=== PATIENT | female | born 1975 | race Caucasian/White ===

== ENCOUNTER 2021-02-11 09:22 | Inpatient (IN) | payer BC, MEDICAID ==
[~2021-02-11] VITALS: Ht 154.9 cm; Wt 70.1 kg
[2021-02-11] MEDS ORDERED: FUROSEMIDE 40 MG/4 ML VIAL IV ONE ×2 (10:45→15:15)
[2021-02-11 11:37] LABS: Basophils # (auto) 0 10 ^3/uL (0-0.2); Basophils % (auto) 0.7 % (0.0-2.0); Eosinophils # (auto) 0.1 10 ^3/uL (0-0.8); Eosinophils % (auto) 2.1 % (0.0-7.0); Hematocrit 30.6 % (36.0-46.0); Hemoglobin 10.4 g/dL (12.2-16.2); Lymphocytes # (auto) 0.5 10 ^3/uL (0.4-5.4); Lymphocytes % (auto) 7.3 % (10.0-50.0); Mean Corpuscular Hemoglobin 31.5 pg (28.0-32.0); Mean Corpuscular Hgb Conc. 34.2 g/dL (32.0-36.0); Mean Corpuscular Volume 92.2 fL (80.0-100.0); Monocytes # (auto) 0.4 10 ^3/uL (0-1.3); Monocytes % (auto) 6.1 % (0.0-12.0); Neutrophils # (auto) 5.9 10 ^3/uL (1.6-8.6); Neutrophils % (auto) 83.8 % (37.0-80.0); Nucleated Red Blood Cells % 0.1 %; Red Blood Cells 3.31 10^6/uL (4.0-5.20); Red Cell Distribution Width 13.8 % (11.8-14.3); White Blood Cell 7.1 10^3/uL (4.4-10.8)
[2021-02-11] MEDS ORDERED: cefTRIAXone 1GM/50ML D5W 50 ML IV ONE (11:45)
[2021-02-11 11:54] LABS: Calcium 8.6 mg/dL (8.5-10.1); Chloride 104 mmol/L (98-107); Potassium 3.1 mmol/L (3.5-5.1); Sodium 137 mmol/L (136-145)
[2021-02-11 12:02] LABS: Alanine Aminotransferase 40 U/L (13-56); Albumin 3.7 g/dL (3.4-5.0); Alkaline Phosphatase 164 U/L (45-117); Anion Gap 14 (5-15); Aspartate Aminotransferase 22 U/L (15-37); BUN/Creatinine Ratio 8.5; Bilirubin, Total 0.5 mg/dL (0.2-1.0); Blood Urea Nitrogen 66 mg/dL (7-18); Carbon Dioxide 19 mmol/L (21-32); GFR African American 7 mL/min; GFR Non-African American 6 mL/min; Glucose 99 mg/dL (74-106)
[2021-02-11] MEDS ORDERED: LABETALOL HCL 5 MG/ML 4ML SYRINGE IV ONE (14:45)
[2021-02-11] MEDS ORDERED: cloNIDine 0.2 mg/24hr 7DAY PATCH TD ONE (15:15)
[2021-02-11] MEDS: NIFEdipine ER 30 MG TAB PO SCH (15:15)
[2021-02-11] MEDS ORDERED: POTASSIUM CHL 20 Meq TABLET PO ONE (16:45)
[2021-02-11] MEDS ORDERED: NITROGLYCERIN 0.4 MG SL TAB SL PRN ×2 (17:30→20:15)
[2021-02-11] MEDS ORDERED: MORPHINE SULFATE INJECTION 2 MG/ML SYRG IV PRN ×2 (17:30→20:15)
[2021-02-11 17:37] LABS: Urine WBC None Seen /hpf (0 - 5)
[2021-02-11] MEDS ORDERED: FUROSEMIDE 100 MG/10ML VIAL IV ONE (18:00)
[2021-02-11 18:16] LABS: Urine Bacteria FEW /hpf (None Seen); Urine Blood Negative /uL (Negative)
[2021-02-11] MEDS ORDERED: ONDANSETRON HCL 4 MG/2 ML VIAL ONE (19:06)
[2021-02-11] MEDS ORDERED: hydrALAZINE HCL 20 MG/ML VL IV PRN (20:00)
[2021-02-11] MEDS ORDERED: SODIUM CHLORIDE 0.9% 1,000 ML IV SCH (20:00)
[2021-02-11] MEDS ORDERED: LORazepam 0.5 MG TAB PO PRN (20:15)
[2021-02-11] MEDS ORDERED: HYDROcodone-ACET 5/325MG TAB PO PRN (20:15)
[2021-02-11] MEDS ORDERED: ONDANSETRON HCL 4 MG/2 ML VIAL IV PRN (20:15)
[2021-02-11] MEDS ORDERED: DOCUSATE SOD 100 MG CAP PO PRN (20:15)
[2021-02-11] MEDS ORDERED: ACETAMINOPHEN 325 MG TAB PO PRN (20:15)
[2021-02-11] MEDS ORDERED: FAMOTIDINE (10MG/ML) 2ML VL IV ONE (20:15)
[2021-02-11 21:53] LABS: Cholesterol 128 mg/dL (< 200); HDL Cholesterol 42 mg/dL (40-59); LDL Cholesterol 72 mg/dL (< 100); Triglycerides 63 mg/dL (< 150)
[2021-02-11] MEDS ORDERED: hydrALAZINE HCL 25 MG TAB PO ONE (22:00)
[2021-02-12 00:40] LABS: Alcohol, Urine < 3.0 mg/dL (0-10); Amphetamine Screen, Urine POSITIVE (NEGATIVE); Barbiturate Scree,Urine NEGATIVE (NEGATIVE); Benzodiazephine Screen, Urine NEGATIVE (NEGATIVE); Cannabinoid Screen, Urine NEGATIVE (NEGATIVE); Cocaine Screen, Urine NEGATIVE (NEGATIVE); Opiate Scree,Urine NEGATIVE (NEGATIVE); Phencyclidine Screen, Urine NEGATIVE (NEGATIVE)
[2021-02-12 05:39] LABS: Basophils # (auto) 0 10 ^3/uL (0-0.2); Basophils % (auto) 0.8 % (0.0-2.0); Eosinophils # (auto) 0.2 10 ^3/uL (0-0.8); Eosinophils % (auto) 3.2 % (0.0-7.0); Hematocrit 27.9 % (36.0-46.0); Hemoglobin 9.8 g/dL (12.2-16.2); Lymphocytes # (auto) 0.7 10 ^3/uL (0.4-5.4); Mean Corpuscular Hemoglobin 32.2 pg (28.0-32.0); Mean Corpuscular Hgb Conc. 35.1 g/dL (32.0-36.0); Mean Corpuscular Volume 91.7 fL (80.0-100.0); Monocytes # (auto) 0.5 10 ^3/uL (0-1.3); Monocytes % (auto) 8.9 % (0.0-12.0); Neutrophils # (auto) 4.6 10 ^3/uL (1.6-8.6); Neutrophils % (auto) 76.1 % (37.0-80.0); Red Blood Cells 3.04 10^6/uL (4.0-5.20); Red Cell Distribution Width 13.8 % (11.8-14.3)
[2021-02-12] MEDS: FUROSEMIDE 40 MG/4 ML VIAL IV SCH ×2 (05:53→18:00)
[2021-02-12 05:54] LABS: INR 1.05 (0.9-1.15); Partial Thromboplastin Time 25.7 sec (23.6-33.0)
[2021-02-12 06:27] LABS: Chloride 106 mmol/L (98-107); Potassium 3.1 mmol/L (3.5-5.1); Sodium 138 mmol/L (136-145)
[2021-02-12 06:46] LABS: Alanine Aminotransferase 35 U/L (13-56); Albumin 3.3 g/dL (3.4-5.0); Alkaline Phosphatase 159 U/L (45-117); Anion Gap 13 (5-15); Aspartate Aminotransferase 16 U/L (15-37); BUN/Creatinine Ratio 8.5; Bilirubin, Total 0.4 mg/dL (0.2-1.0); Blood Urea Nitrogen 65 mg/dL (7-18); Calcium 8.5 mg/dL (8.5-10.1); Carbon Dioxide 19 mmol/L (21-32); GFR African American 7 mL/min; GFR Non-African American 6 mL/min; Glucose 89 mg/dL (74-106); Magnesium 3.4 mg/dL (1.6-2.6); Phosphorus 6.2 mg/dL (2.5-4.90); Total Protein 6.6 g/dL (6.4-8.2)
[2021-02-12] MEDS ORDERED: POTASSIUM EFFERVESENT TAB 25 MEQ ONE (08:37)
[2021-02-12] MEDS: POTASSIUM CHL 20 Meq TABLET PO SCH (08:43)
[2021-02-12] MEDS: NIFEdipine ER 30 MG TAB PO SCH (08:43)
[2021-02-12] MEDS: ENOXAPARIN SOD 30 MG/0.3 ML SYRINGE SC SCH (08:44)
[2021-02-12] MEDS ORDERED: POTASSIUM EFFERVESENT TAB 25 MEQ PO ONE (08:45)
[2021-02-12] MEDS ORDERED: ERGOCALCIFEROL 50,000 UNIT(1.25MG) CAP PO SCH (10:30)
[2021-02-12 11:19] LABS: Protein, Urine 57.1 mg/dL (0.0-11.9)
[2021-02-12] MEDS: CALCIUM ACETATE 667 MG CAP PO SCH ×2 (12:47→18:00)
[2021-02-12] MEDS ORDERED: cloNIDine HCL 0.1 MG TAB PO PRN ×2 (14:15→15:45)
[2021-02-12] MEDS: MORPHINE SULFATE INJECTION 2 MG/ML SYRG IV PRN (15:24)
[2021-02-12] MEDS ORDERED: CARVEDILOL 3.125 MG TAB PO ONE (15:30)
[2021-02-12 15:33] LABS: % Iron Saturation 10.1 % (15-50)
[2021-02-12 15:41] LABS: Ferritin 33.2 ng/mL (10-322)
[2021-02-12 15:42] LABS: Folate (Folic Acid) 7.94 ng/mL (5.38-24)
[2021-02-12 17:38] VITALS: BP 166/106
[2021-02-12] MEDS ORDERED: GALC120I SC (18:34)
[2021-02-12] MEDS ORDERED: OXYC325T14 PO (18:34)
[2021-02-12] MEDS ORDERED: RIZA10TA50 PO (18:34)
[2021-02-12 22:00] VITALS: BP 136/92
[2021-02-12] MEDS: CARVEDILOL 3.125 MG TAB PO SCH (22:16)
[2021-02-13] VITALS (11 sets, daily range): BP systolic 144–174; BP diastolic 90–123
[2021-02-13] MEDS: FUROSEMIDE 40 MG/4 ML VIAL IV SCH ×2 (05:42→17:38)
[2021-02-13] MEDS ORDERED: SODIUM CHL 0.9% 1000 ML BAG XX ONE (07:00)
[2021-02-13] MEDS: CALCIUM ACETATE 667 MG CAP PO SCH ×3 (08:27→17:38)
[2021-02-13] MEDS ORDERED: SODIUM FERR GLUC 62.5MG/5ML 125 MG in SODIUM CHL 0.9% 100 ML IV ONE (08:45)
[2021-02-13 09:09] LABS: BUN/Creatinine Ratio 9.1; Potassium 3.6 mmol/L (3.5-5.1)
[2021-02-13] MEDS ORDERED: MIDAZOLAM HCL 2MG/2ML 2ml VIAL (1mg/ml) ONE (09:11)
[2021-02-13] MEDS ORDERED: fentaNYL CITRATE 100 MCG/2 ML VL ONE (09:11)
[2021-02-13] MEDS: NIFEdipine ER 30 MG TAB PO SCH (09:12)
[2021-02-13] MEDS: CARVEDILOL 3.125 MG TAB PO SCH ×2 (09:13→22:21)
[2021-02-13] MEDS: POTASSIUM CHL 20 Meq TABLET PO SCH (09:13)
[2021-02-13] MEDS ORDERED: HEPARIN SODIUM (PORCINE) 5000 UNITS/ML 1ML VIAL ONE (09:47)
[2021-02-13] MEDS ORDERED: LIDOCAINE 2%HCL (LOCAL ANESTH.) INJ 20ML MDV ONE (09:49)
[2021-02-13] MEDS: ENOXAPARIN SOD 30 MG/0.3 ML SYRINGE SC SCH (10:00)
[2021-02-13] MEDS ORDERED: CYANOCOBALAMIN (B-12) 1000 MCG/1 ML VIAL SUBCUT ONE (14:45)
[2021-02-13] MEDS: FAMOTIDINE (10MG/ML) 2ML VL IV SCH (22:21)
[2021-02-13] MEDS: MORPHINE SULFATE INJECTION 2 MG/ML SYRG IV PRN (22:38)
[2021-02-14 05:00] VITALS: BP 140/101
[2021-02-14] MEDS: FUROSEMIDE 40 MG/4 ML VIAL IV SCH ×2 (05:45→17:46)
[2021-02-14 06:18] LABS: Potassium 3.6 mmol/L (3.5-5.1)
[2021-02-14 06:23] LABS: BUN/Creatinine Ratio 8.3; Calcium 8.7 mg/dL (8.5-10.1)
[2021-02-14] MEDS: CALCIUM ACETATE 667 MG CAP PO SCH ×3 (07:55→17:46)
[2021-02-14 09:00] VITALS: BP 133/93
[2021-02-14] MEDS: ENOXAPARIN SOD 30 MG/0.3 ML SYRINGE SC SCH (09:30)
[2021-02-14] MEDS: NIFEdipine ER 30 MG TAB PO SCH (09:31)
[2021-02-14] MEDS: LOSARTAN POTASSIUM 50 MG TAB PO SCH (09:31)
[2021-02-14] MEDS: CARVEDILOL 3.125 MG TAB PO SCH ×2 (09:32→21:48)
[2021-02-14] MEDS: SODIUM FERR GLUC 62.5MG/5ML 125 MG in SODIUM CHL 0.9% 100 ML IV SCH (12:18)
[2021-02-14 13:00] VITALS: BP 149/103
[2021-02-14 13:21] LABS: Hepatitis A Total Antibody Negative
[2021-02-14 13:37] LABS: Hepatitis B Surface Antigen Negative (Negative)
[2021-02-14 13:45] LABS: Hepatitis B Surface Antibody Negative
[2021-02-14 14:00] LABS: Hepatitis C Antibody Negative (Negative)
[2021-02-14 14:06] LABS: Hepatitis B Core Total AB Negative
[2021-02-14 16:49] VITALS: BP 133/88
[2021-02-14] MEDS: MORPHINE SULFATE INJECTION 2 MG/ML SYRG IV PRN (21:49)
[2021-02-14 21:54] VITALS: BP 135/88
[2021-02-15 05:05] VITALS: BP 135/94
[2021-02-15] MEDS: FUROSEMIDE 40 MG/4 ML VIAL IV SCH ×2 (06:23→18:50)
[2021-02-15] MEDS: CALCIUM ACETATE 667 MG CAP PO SCH ×3 (08:50→18:50)
[2021-02-15 09:00] VITALS: BP 133/93
[2021-02-15] MEDS: CARVEDILOL 3.125 MG TAB PO SCH ×2 (10:00→22:01)
[2021-02-15] MEDS: ENOXAPARIN SOD 30 MG/0.3 ML SYRINGE SC SCH (10:00)
[2021-02-15] MEDS ORDERED: SODIUM CHL 0.9% 1000 ML BAG XX ONE (11:00)
[2021-02-15] MEDS: SODIUM FERR GLUC 62.5MG/5ML 125 MG in SODIUM CHL 0.9% 100 ML IV SCH (12:18)
[2021-02-15] MEDS: MORPHINE SULFATE INJECTION 2 MG/ML SYRG IV PRN ×2 (12:19→20:23)
[2021-02-15 14:37] LABS: Basophils # (auto) 0 10 ^3/uL (0-0.2); Basophils % (auto) 0.7 % (0.0-2.0); Eosinophils # (auto) 0.2 10 ^3/uL (0-0.8); Eosinophils % (auto) 3.6 % (0.0-7.0); Hematocrit 32.8 % (36.0-46.0); Hemoglobin 10.9 g/dL (12.2-16.2); Lymphocytes # (auto) 0.8 10 ^3/uL (0.4-5.4); Lymphocytes % (auto) 14.6 % (10.0-50.0); Mean Corpuscular Hgb Conc. 33.2 g/dL (32.0-36.0); Mean Corpuscular Volume 93.5 fL (80.0-100.0); Monocytes # (auto) 0.6 10 ^3/uL (0-1.3); Monocytes % (auto) 10.2 % (0.0-12.0); Neutrophils # (auto) 3.8 10 ^3/uL (1.6-8.6); Neutrophils % (auto) 70.9 % (37.0-80.0); Nucleated Red Blood Cells % 0.1 %; Red Blood Cells 3.51 10^6/uL (4.0-5.20); Red Cell Distribution Width 13.6 % (11.8-14.3); White Blood Cell 5.4 10^3/uL (4.4-10.8)
[2021-02-15] MEDS ORDERED: CAR3125T PO (15:09)
[2021-02-15] MEDS ORDERED: NIFE1TAB31 PO (15:09)
[2021-02-15] MEDS ORDERED: LOSA-69 PO (15:09)
[2021-02-15] MEDS ORDERED: ERGO1CAP23 PO (15:09)
[2021-02-15] MEDS ORDERED: CYANOCOBALAMIN (B-12) 1000 MCG/1 ML VIAL SUBCUT ONE (15:15)
[2021-02-15] MEDS: LOSARTAN POTASSIUM 50 MG TAB PO SCH (16:25)
[2021-02-15] MEDS: NIFEdipine ER 30 MG TAB PO SCH (16:26)
[2021-02-15 16:52] VITALS: BP 168/106
[2021-02-15] MEDS: FAMOTIDINE (10MG/ML) 2ML VL IV SCH (22:00)
[2021-02-15 22:11] VITALS: BP 131/78
[2021-02-16 05:14] VITALS: BP 124/79
[2021-02-16] MEDS: FUROSEMIDE 40 MG/4 ML VIAL IV SCH (06:05)
[2021-02-16] MEDS ORDERED: SODIUM CHL 0.9% 1000 ML BAG XX ONE (07:00)
[2021-02-16] MEDS: CALCIUM ACETATE 667 MG CAP PO SCH ×2 (08:00→12:00)
[2021-02-16 09:00] VITALS: BP 127/89
[2021-02-16] MEDS: CARVEDILOL 3.125 MG TAB PO SCH (10:00)
[2021-02-16] MEDS: LOSARTAN POTASSIUM 50 MG TAB PO SCH (10:00)
[2021-02-16] MEDS: NIFEdipine ER 30 MG TAB PO SCH (10:00)
[2021-02-16 10:52] LABS: Basophils # (auto) 0 10 ^3/uL (0-0.2); Basophils % (auto) 0.8 % (0.0-2.0); Eosinophils # (auto) 0.1 10 ^3/uL (0-0.8); Eosinophils % (auto) 3.1 % (0.0-7.0); Hematocrit 28.7 % (36.0-46.0); Hemoglobin 9.5 g/dL (12.2-16.2); Lymphocytes # (auto) 0.5 10 ^3/uL (0.4-5.4); Lymphocytes % (auto) 11.7 % (10.0-50.0); Mean Corpuscular Hemoglobin 30.5 pg (28.0-32.0); Mean Corpuscular Volume 92.4 fL (80.0-100.0); Monocytes # (auto) 0.5 10 ^3/uL (0-1.3); Monocytes % (auto) 10.3 % (0.0-12.0); Neutrophils # (auto) 3.5 10 ^3/uL (1.6-8.6); Neutrophils % (auto) 74.1 % (37.0-80.0); Nucleated Red Blood Cells % 0.1 %; Red Cell Distribution Width 13.6 % (11.8-14.3); White Blood Cell 4.7 10^3/uL (4.4-10.8)
[2021-02-16 13:00] VITALS: BP 116/109
[2021-02-16 16:02] VITALS: BP 155/89
== END 2021-02-16 15:06 | disposition home or self-care (01) | DRG 304 ==
LOC: ER 09:22 → TELE 17:28 → TELE-WESTW 02-12 17:06
PROVIDERS: ADMIT Hospitalist; ATTEND Internal Medicine
PROC: 0JH63XZ Insertion of Tunneled Vascular Access Device into Chest Subcutaneous Tissue and Fascia, Percutaneous Approach (ICD-10-PCS; principal; 2021-02-13)
PROC: 02H633Z Insertion of Infusion Device into Right Atrium, Percutaneous Approach (ICD-10-PCS; 2021-02-13)
PROC: B548ZZA Ultrasonography of Superior Vena Cava, Guidance (ICD-10-PCS; 2021-02-13)
PROC: B5181ZA Fluoroscopy of Superior Vena Cava using Low Osmolar Contrast, Guidance (ICD-10-PCS; 2021-02-13)
PROC: 5A1D70Z Performance of Urinary Filtration, Intermittent, Less than 6 Hours Per Day (ICD-10-PCS; 2021-02-13)
PROC: 5A1D70Z Performance of Urinary Filtration, Intermittent, Less than 6 Hours Per Day (ICD-10-PCS; 2021-02-16)
DX: I16.1 Hypertensive emergency (principal); J18.9 Pneumonia, unspecified organism; N17.0 Acute kidney failure with tubular necrosis; N18.6 End stage renal disease; I13.2 Hypertensive heart and chronic kidney disease with heart failure and with stage 5 chronic kidney disease, or end stage renal disease; E66.01 Morbid (severe) obesity due to excess calories; E87.6 Hypokalemia; F15.10 Other stimulant abuse, uncomplicated; Z20.822 Contact with and (suspected) exposure to COVID-19; R80.9 Proteinuria, unspecified; E87.70 Fluid overload, unspecified; I08.3 Combined rheumatic disorders of mitral, aortic and tricuspid valves; I50.9 Heart failure, unspecified; F17.210 Nicotine dependence, cigarettes, uncomplicated; E55.9 Vitamin D deficiency, unspecified; G43.909 Migraine, unspecified, not intractable, without status migrainosus; D50.9 Iron deficiency anemia, unspecified; G89.4 Chronic pain syndrome; Z82.49 Family history of ischemic heart disease and other diseases of the circulatory system; Z91.19 Patient's noncompliance with other medical treatment and regimen; Z99.2 Dependence on renal dialysis; Z71.6 Tobacco abuse counseling; Z88.0 Allergy status to penicillin; Z71.51 Drug abuse counseling and surveillance of drug abuser; Z68.29 Body mass index [BMI] 29.0-29.9, adult
CPT/HCPCS: 36415; 36561; 70490; 71045; 71046; 76775; 76937; 76942; 77001; 80048; 80053; 80061; 80307; 81001; 82088; 82270; 82306; 82550; 82570; 82607; 82728; 82746; 82784; 83036; 83516; 83520; 83540; 83550; 83605; 83735; 83880; 83883; 83935; 83970; 84100; 84132; 84155; 84156; 84165; 84244; 84300; 84443; 84484; 84550; 84702; 85025; 85379; 85610; 85652; 85730; 86141; 86160; 86225; 86235; 86256; 86334; 86703; 86704; 86706; 86708; 86803; 87040; 87086; 87340; 87426; 90935; 93005; 93306; 93970; 96365; 96375; 99152; 99153; 99291; G0378; J0696; J1642; J2250; J2405; J3490

== ENCOUNTER 2022-02-25 08:18 | Emergency (ER) | payer BC, MEDICAID ==
[~2022-02-25] VITALS: Ht 154.9 cm; Wt 63.6 kg
[~2022-02-25 08:18] MED LIST: CAR3125T PO; ERGO1CAP23 PO; GALC120I SC; LOSA-69 PO; NIFE1TAB31 PO; OXYC325T14 PO; RIZA10TA50 PO
[2022-02-25 09:12] LABS: Basophils # (auto) 0 10 ^3/uL (0-0.2); Basophils % (auto) 0.3 % (0.0-2.0); Eosinophils # (auto) 0.1 10 ^3/uL (0-0.8); Eosinophils % (auto) 1.1 % (0.0-7.0); Hemoglobin 12.6 g/dL (12.2-16.2); Lymphocytes # (auto) 0.5 10 ^3/uL (0.4-5.4); Lymphocytes % (auto) 5.2 % (10.0-50.0); Mean Corpuscular Hemoglobin 31.6 pg (28.0-32.0); Mean Corpuscular Volume 92.9 fL (80.0-100.0); Monocytes # (auto) 0.8 10 ^3/uL (0-1.3); Monocytes % (auto) 8.8 % (0.0-12.0); Neutrophils # (auto) 8.1 10 ^3/uL (1.6-8.6); Neutrophils % (auto) 84.6 % (37.0-80.0); Red Blood Cells 3.98 10^6/uL (4.0-5.20); Red Cell Distribution Width 12.9 % (11.8-14.3); White Blood Cell 9.6 10^3/uL (4.4-10.8)
[2022-02-25 09:29] LABS: Albumin 3.5 g/dL (3.4-5.0); Calcium 7.2 mg/dL (8.5-10.1); Potassium 3.9 mmol/L (3.5-5.1)
[2022-02-25 09:33] LABS: BUN/Creatinine Ratio 8.3; Bilirubin, Total 0.5 mg/dL (0.2-1.0); Total Protein 6.8 g/dL (6.4-8.2)
[2022-02-25] MEDS ORDERED: PIPERACILLIN-TAZOB 3.375GM 100 ML IV ONE (09:45)
[2022-02-25 11:00] VITALS: BP 143/97
== END 2022-02-25 11:37 | disposition left against medical advice (07) ==
LOC: ER 08:18
DX: L03.313 Cellulitis of chest wall (principal); I16.0 Hypertensive urgency; I13.2 Hypertensive heart and chronic kidney disease with heart failure and with stage 5 chronic kidney disease, or end stage renal disease; N18.6 End stage renal disease; I50.84 End stage heart failure; Z99.2 Dependence on renal dialysis; Z53.29 Procedure and treatment not carried out because of patient's decision for other reasons; Z20.822 Contact with and (suspected) exposure to COVID-19; Z88.0 Allergy status to penicillin; Z91.018 Allergy to other foods
CPT/HCPCS: 36415; 71045; 80053; 83605; 84484; 85025; 87040; 87426; 96365; 99284; J2543

== ENCOUNTER 2022-02-26 22:39 | Inpatient (IN) | payer BC, MEDICAID ==
[~2022-02-26] VITALS: Ht 162.6 cm; Wt 65.8 kg
[2022-02-27 01:12] LABS: Basophils # (auto) 0 10 ^3/uL (0-0.2); Basophils % (auto) 0.8 % (0.0-2.0); Eosinophils # (auto) 0.1 10 ^3/uL (0-0.8); Hematocrit 31.7 % (36.0-46.0); Hemoglobin 10.9 g/dL (12.2-16.2); Lymphocytes # (auto) 0.7 10 ^3/uL (0.4-5.4); Lymphocytes % (auto) 12.4 % (10.0-50.0); Mean Corpuscular Hemoglobin 32.2 pg (28.0-32.0); Mean Corpuscular Hgb Conc. 34.5 g/dL (32.0-36.0); Mean Corpuscular Volume 93.5 fL (80.0-100.0); Monocytes # (auto) 0.6 10 ^3/uL (0-1.3); Monocytes % (auto) 9.8 % (0.0-12.0); Neutrophils # (auto) 4.5 10 ^3/uL (1.6-8.6); Red Blood Cells 3.39 10^6/uL (4.0-5.20); Red Cell Distribution Width 13.2 % (11.8-14.3)
[2022-02-27 01:27] LABS: INR 0.96 (0.9-1.15)
[2022-02-27 01:32] LABS: Albumin 3.3 g/dL (3.4-5.0); Calcium 7.3 mg/dL (8.5-10.1); Potassium 4.3 mmol/L (3.5-5.1)
[2022-02-27 01:34] LABS: BUN/Creatinine Ratio 9.1
[2022-02-27 01:36] LABS: Bilirubin, Total 0.3 mg/dL (0.2-1.0); Total Protein 6.3 g/dL (6.4-8.2)
[2022-02-27] MEDS ORDERED: ONDANSETRON HCL 4 MG/2 ML VIAL IV PRN (04:45)
[2022-02-27] MEDS: ACETAMINOPHEN 325 MG TAB PO PRN (05:09)
[2022-02-27] MEDS: CLINDAMYCIN 600MG IV 50 ML IV SCH ×3 (06:30→22:28)
[2022-02-27] MEDS: CARVEDILOL 3.125 MG TAB PO SCH ×2 (10:00→22:42)
[2022-02-27] MEDS: PANTOPRAZOLE 40 MG TAB PO SCH (10:23)
[2022-02-27] MEDS: LOSARTAN POTASSIUM 50 MG TAB PO SCH (10:24)
[2022-02-27] MEDS: NIFEdipine ER 30 MG TAB PO SCH (10:25)
[2022-02-27 12:19] LABS: Phosphorus 4.9 mg/dL (2.5-4.90)
[2022-02-27 12:56] LABS: Alcohol, Urine < 3.0 mg/dL (0-10); Amphetamine Screen, Urine NEGATIVE (NEGATIVE); Barbiturate Scree,Urine NEGATIVE (NEGATIVE); Benzodiazephine Screen, Urine NEGATIVE (NEGATIVE); Cocaine Screen, Urine NEGATIVE (NEGATIVE); Opiate Scree,Urine NEGATIVE (NEGATIVE); Phencyclidine Screen, Urine NEGATIVE (NEGATIVE)
[2022-02-27 12:57] LABS: Cannabinoid Screen, Urine NEGATIVE (NEGATIVE)
[2022-02-27 13:03] LABS: Urine Bacteria NONE SEEN /hpf (None Seen); Urine Blood Negative /uL (Negative); Urine Specific Gravity 1.013 (1.001-1.035); Urine WBC 1 /hpf (0 - 5)
[2022-02-27] MEDS ORDERED: CYANOCOBALAMIN (B-12) 1000 MCG/1 ML VIAL IM ONE (15:45)
[2022-02-27] MEDS ORDERED: SODIUM FERR GLUC 62.5MG/5ML 125 MG in SODIUM CHL 0.9% 100 ML IV ONE (15:45)
[2022-02-27 16:50] VITALS: BP 141/91
[2022-02-27 21:30] VITALS: BP 154/88
[2022-02-28] VITALS (9 sets, daily range): BP systolic 117–167; BP diastolic 78–105
[2022-02-28 05:38] LABS: Basophils # (auto) 0 10 ^3/uL (0-0.2); Basophils % (auto) 0.7 % (0.0-2.0); Eosinophils # (auto) 0.1 10 ^3/uL (0-0.8); Eosinophils % (auto) 2.7 % (0.0-7.0); Hemoglobin 11.3 g/dL (12.2-16.2); Lymphocytes # (auto) 0.7 10 ^3/uL (0.4-5.4); Lymphocytes % (auto) 16.8 % (10.0-50.0); Mean Corpuscular Hemoglobin 31.7 pg (28.0-32.0); Mean Corpuscular Hgb Conc. 34.2 g/dL (32.0-36.0); Mean Corpuscular Volume 92.8 fL (80.0-100.0); Monocytes # (auto) 0.5 10 ^3/uL (0-1.3); Monocytes % (auto) 10.7 % (0.0-12.0); Neutrophils % (auto) 69.1 % (37.0-80.0); Red Blood Cells 3.55 10^6/uL (4.0-5.20); White Blood Cell 4.3 10^3/uL (4.4-10.8)
[2022-02-28] MEDS: CLINDAMYCIN 600MG IV 50 ML IV SCH ×3 (05:44→22:00)
[2022-02-28 05:55] LABS: Calcium 7.4 mg/dL (8.5-10.1); Potassium 4.4 mmol/L (3.5-5.1)
[2022-02-28 05:58] LABS: Bilirubin, Total 0.3 mg/dL (0.2-1.0); Total Protein 6.3 g/dL (6.4-8.2)
[2022-02-28 06:10] LABS: % Iron Saturation 38.6 % (15-50)
[2022-02-28] MEDS ORDERED: SODIUM CHL 0.9% 1000 ML BAG XX ONE (07:00)
[2022-02-28] MEDS: LOSARTAN POTASSIUM 50 MG TAB PO SCH (10:00)
[2022-02-28] MEDS: NIFEdipine ER 30 MG TAB PO SCH (10:00)
[2022-02-28] MEDS: CARVEDILOL 3.125 MG TAB PO SCH ×2 (10:00→22:01)
[2022-02-28] MEDS: PANTOPRAZOLE 40 MG TAB PO SCH (10:00)
[2022-02-28] MEDS ORDERED: MIDAZOLAM HCL 2MG/2ML 2ml VIAL (1mg/ml) ONE (10:27)
[2022-02-28] MEDS ORDERED: fentaNYL CITRATE 100 MCG/2 ML VL ONE (10:27)
[2022-02-28] MEDS ORDERED: LIDOCAINE 2%HCL (LOCAL ANESTH.) INJ 20ML MDV ONE (10:28)
[2022-02-28] MEDS ORDERED: HEPARIN SODIUM (PORCINE) 5000 UNITS/ML 1ML VIAL ONE (11:02)
[2022-02-28] MEDS ORDERED: SODIUM FERR GLUC 62.5MG/5ML 125 MG in SODIUM CHL 0.9% 100 ML IV SCH (12:00)
[2022-02-28] MEDS ORDERED: MORPHINE SULFATE INJ 2 MG/ml SYRG IV PRN (15:15)
[2022-02-28] MEDS: ACETAMINOPHEN 325 MG TAB PO PRN (17:00)
[2022-02-28] MEDS: CYANOCOBALAMIN (B-12) 1000 MCG/1 ML VIAL IM SCH (17:15)
[2022-02-28] MEDS ORDERED: EPOETIN ALFA-EPBX 10,000 UNIT/1ML VIAL SC ONE (21:00)
[2022-03-01] MEDS: CLINDAMYCIN 600MG IV 50 ML IV SCH (04:54)
[2022-03-01 05:00] VITALS: BP 144/97
[2022-03-01 08:00] VITALS: BP 147/99
[2022-03-01 09:00] VITALS: BP 147/99
[2022-03-01] MEDS: PANTOPRAZOLE 40 MG TAB PO SCH (09:03)
[2022-03-01] MEDS: NIFEdipine ER 30 MG TAB PO SCH (09:09)
[2022-03-01] MEDS: CARVEDILOL 3.125 MG TAB PO SCH (09:09)
[2022-03-01] MEDS: CYANOCOBALAMIN (B-12) 1000 MCG/1 ML VIAL IM SCH (09:10)
[2022-03-01] MEDS ORDERED: CLIN300C8 PO (11:52)
[2022-03-01 12:10] VITALS: BP 147/99
== END 2022-03-01 13:00 | disposition home or self-care (01) | DRG 673 ==
LOC: ER 22:39 → EDBD 22:39 → OVERFLOW 02-27 04:31 → CENTRAL 02-27 14:50
PROVIDERS: ADMIT Nurse Practitioner; ATTEND Internal Medicine
PROC: 0JH63XZ Insertion of Tunneled Vascular Access Device into Chest Subcutaneous Tissue and Fascia, Percutaneous Approach (ICD-10-PCS; principal; 2022-02-28)
PROC: 5A1D70Z Performance of Urinary Filtration, Intermittent, Less than 6 Hours Per Day (ICD-10-PCS; 2022-02-28)
PROC: 02H633Z Insertion of Infusion Device into Right Atrium, Percutaneous Approach (ICD-10-PCS; 2022-02-28)
PROC: B548ZZA Ultrasonography of Superior Vena Cava, Guidance (ICD-10-PCS; 2022-02-28)
PROC: B5181ZA Fluoroscopy of Superior Vena Cava using Low Osmolar Contrast, Guidance (ICD-10-PCS; 2022-02-28)
PROC: 0JPT3XZ Removal of Tunneled Vascular Access Device from Trunk Subcutaneous Tissue and Fascia, Percutaneous Approach (ICD-10-PCS; 2022-02-28)
DX: T82.41XA Breakdown (mechanical) of vascular dialysis catheter, initial encounter (principal); N18.6 End stage renal disease; I13.2 Hypertensive heart and chronic kidney disease with heart failure and with stage 5 chronic kidney disease, or end stage renal disease; L03.90 Cellulitis, unspecified; E87.20 Acidosis, unspecified; Y84.8 Other medical procedures as the cause of abnormal reaction of the patient, or of later complication, without mention of misadventure at the time of the procedure; Y92.89 Other specified places as the place of occurrence of the external cause; E11.22 Type 2 diabetes mellitus with diabetic chronic kidney disease; I50.9 Heart failure, unspecified; I67.1 Cerebral aneurysm, nonruptured; Z82.49 Family history of ischemic heart disease and other diseases of the circulatory system; Z83.3 Family history of diabetes mellitus; Z99.2 Dependence on renal dialysis; Y71.2 Prosthetic and other implants, materials and accessory cardiovascular devices associated with adverse incidents; D63.1 Anemia in chronic kidney disease; Z20.822 Contact with and (suspected) exposure to COVID-19; Z88.0 Allergy status to penicillin; Z91.15 Patient's noncompliance with renal dialysis
CPT/HCPCS: 36415; 76536; 76942; 80053; 80061; 80307; 81001; 82306; 82607; 82728; 83540; 83550; 83605; 83615; 83880; 83970; 84100; 84443; 84484; 85025; 85045; 85610; 85730; 87040; 87340; 90935; 93005; 93306; 96365; 96372; 96375; 99152; 99153; G0378; J1642; J2250; J3490

== ENCOUNTER 2022-03-26 08:23 | Day surgery (SDC) | payer BC, MEDICAID ==
[2022-03-24 14:11] LABS: Basophils # (auto) 0 10 ^3/uL (0-0.2); Basophils % (auto) 0.7 % (0.0-2.0); Eosinophils # (auto) 0.1 10 ^3/uL (0-0.8); Eosinophils % (auto) 2.5 % (0.0-7.0); Hematocrit 35.4 % (36.0-46.0); Hemoglobin 11.8 g/dL (12.2-16.2); Lymphocytes # (auto) 0.8 10 ^3/uL (0.4-5.4); Lymphocytes % (auto) 13.3 % (10.0-50.0); Mean Corpuscular Hemoglobin 31.7 pg (28.0-32.0); Mean Corpuscular Hgb Conc. 33.2 g/dL (32.0-36.0); Mean Corpuscular Volume 95.3 fL (80.0-100.0); Monocytes # (auto) 0.6 10 ^3/uL (0-1.3); Monocytes % (auto) 10.7 % (0.0-12.0); Neutrophils # (auto) 4.4 10 ^3/uL (1.6-8.6); Neutrophils % (auto) 72.8 % (37.0-80.0); Red Blood Cells 3.71 10^6/uL (4.0-5.20); Red Cell Distribution Width 13.3 % (11.8-14.3)
[2022-03-24 14:32] LABS: INR 0.98 (0.9-1.15); Partial Thromboplastin Time 28.8 sec (24.6-33.4)
[2022-03-24 14:42] LABS: Urine Bacteria FEW /hpf (None Seen); Urine Blood Negative /uL (Negative); Urine Specific Gravity 1.012 (1.001-1.035); Urine WBC <1 /hpf (0 - 5)
[2022-03-24 14:44] LABS: Albumin 3.7 g/dL (3.4-5.0); Calcium 7.8 mg/dL (8.5-10.1); Potassium 4.4 mmol/L (3.5-5.1)
[2022-03-24 14:48] LABS: BUN/Creatinine Ratio 9.9; Bilirubin, Total 0.3 mg/dL (0.2-1.0); Total Protein 7.3 g/dL (6.4-8.2)
[~2022-03-26] VITALS: Ht 154.9 cm; Wt 63.5 kg
[~2022-03-26 08:23] MED LIST changes: +CLON0.1T PO; +HYDR50TA15 PO
[2022-03-26] MEDS ORDERED: PROPOFOL 10 MG/ML 20 ML IV ONE (08:24)
[2022-03-26] MEDS ORDERED: levoFLOXacin 500MG 100 ML IV ONE (09:17)
[2022-03-26] MEDS ORDERED: LIDOCAINE 1%HCL (LOCAL ANESTH) 10 ML MDV ONE (10:39)
[2022-03-26] MEDS ORDERED: ceFAZolin 1GM VL ONE (10:39)
[2022-03-26] MEDS ORDERED: THROMBIN (BOVINE) 5000 UNIT SOL VIAL ONE (10:40)
[2022-03-26] MEDS ORDERED: HEPARIN SODIUM (PORCINE) 5000 UNITS/ML 1ML VIAL ONE ×2 (10:40→11:07)
[2022-03-26] MEDS ORDERED: ONDANSETRON HCL 4 MG/2 ML VIAL IV PRN (11:15)
[2022-03-26] MEDS ORDERED: HYDROmorphone HCL 2 MG/ML VL/or syr IV PRN (11:15)
[2022-03-26] MEDS ORDERED: MIDAZOLAM HCL 2MG/2ML 2ml VIAL (1mg/ml) ONE (11:16)
[2022-03-26] MEDS ORDERED: fentaNYL CITRATE 100 MCG/2 ML VL ONE ×2 (11:16→11:37)
[2022-03-26] MEDS ORDERED: ePHEDrine SULFATE 50 MG/ML AMP ONE (12:02)
[2022-03-26 13:15] VITALS: BP 132/89
== END 2022-03-26 13:30 | disposition home or self-care (01) ==
LOC: SUR 08:23
PROVIDERS: ATTEND Surgery
DX: I12.0 Hypertensive chronic kidney disease with stage 5 chronic kidney disease or end stage renal disease (principal); N18.6 End stage renal disease; J44.9 Chronic obstructive pulmonary disease, unspecified; Z20.822 Contact with and (suspected) exposure to COVID-19; Z79.899 Other long term (current) drug therapy
CPT/HCPCS: 25101; 36415; 80053; 81001; 84702; 85025; 85610; 85730; J0690; J1644; J1956; J2001; J2250; J2704; J3010; J7040; U0003

== ENCOUNTER 2022-09-03 07:34 | Day surgery (SDC) | payer BC, MEDICAID ==
[2022-09-01 15:06] LABS: Hematocrit 33.9 % (36.0-46.0); Hemoglobin 11.4 g/dL (12.2-16.2); Mean Corpuscular Hemoglobin 30.9 pg (28.0-32.0); Mean Corpuscular Hgb Conc. 33.5 g/dL (32.0-36.0); Mean Corpuscular Volume 92.4 fL (80.0-100.0); Red Blood Cells 3.67 10^6/uL (4.0-5.20); Red Cell Distribution Width 13.2 % (11.8-14.3)
[2022-09-01 15:29] LABS: INR 0.97 (0.9-1.15); Partial Thromboplastin Time 34.8 sec (24.6-33.4)
[2022-09-01 15:40] LABS: Albumin 3.8 g/dL (3.4-5.0); Calcium 8.2 mg/dL (8.5-10.1); Potassium 4.1 mmol/L (3.5-5.1)
[2022-09-01 15:42] LABS: Urine Bacteria FEW /hpf (None Seen); Urine Blood Negative /uL (Negative); Urine Specific Gravity 1.005 (1.001-1.035); Urine WBC 1 /hpf (0 - 5)
[2022-09-01 15:44] LABS: BUN/Creatinine Ratio 7.1 (10.0-20.0); Bilirubin, Total 0.4 mg/dL (0.2-1.0); Total Protein 7.4 g/dL (6.4-8.2)
[2022-09-01 15:48] LABS: Band Neutrophils % (manual) 0; Basophils % (manual) 0 (0.0-2.0); Blast Cells 0; Metamyelocytes % 0; Myelocytes % 0; Promyelocytes % 0; Reactive Lymphocytes 0
[2022-09-01 18:18] LABS: Eosinophils % (manual) 5 (0-7); Lymphocytes % (manual) 14 (10.0-50.0); Monocytes % (manual) 9 (0-12)
[~2022-09-03] VITALS: Ht 154.9 cm; Wt 63.5 kg
[2022-09-03] MEDS ORDERED: levoFLOXacin 500MG 100 ML IV ONE (10:34)
[2022-09-03] MEDS ORDERED: HYDROmorphone HCL 2 MG/ML VL/or syr ONE (11:45)
[2022-09-03] MEDS ORDERED: ONDANSETRON HCL 4 MG/2 ML VIAL ONE (11:45)
[2022-09-03] MEDS ORDERED: MIDAZOLAM HCL 2MG/2ML 2ml VIAL (1mg/ml) ONE (11:45)
[2022-09-03] MEDS ORDERED: GLYCOPYRROLATE 0.2 MG/ML 1ML VIAL ONE (11:45)
[2022-09-03] MEDS ORDERED: fentaNYL CITRATE 100 MCG/2 ML VL ONE (11:45)
[2022-09-03] MEDS ORDERED: KETOROLAC TROMETH 30 MG/ML 1ML VIAL ONE (11:45)
[2022-09-03] MEDS ORDERED: DexAMETHasone SOD PHOS 10MG/1ML VIAL INJ ONE (11:45)
[2022-09-03] MEDS ORDERED: PROPOFOL 10 MG/ML 20 ML IV ONE (11:46)
[2022-09-03] MEDS ORDERED: LIDOCAINE 2% (LOCAL ANESTH.) PF 5ml SDV ONE (11:46)
[2022-09-03] MEDS ORDERED: ePHEDrine SULFATE 50 MG/ML AMP ONE (11:46)
[2022-09-03] MEDS ORDERED: KETAMINE HCL 10 ML ONE (13:04)
[2022-09-03] MEDS ORDERED: LIDOCAINE 1%-Mpf/Epinephrine 1:200,000 ONE (13:35)
[2022-09-03] MEDS ORDERED: ESMOLOL HCL 10 ML IV ONE (13:37)
[2022-09-03] MEDS ORDERED: HYDROmorphone HCL 2 MG/ML VL/or syr IV PRN (14:45)
[2022-09-03] MEDS ORDERED: ONDANSETRON HCL 4 MG/2 ML VIAL IV PRN (14:45)
[2022-09-03 15:05] VITALS: BP 148/99
== END 2022-09-03 15:20 | disposition home or self-care (01) ==
LOC: SUR 07:34
PROVIDERS: ATTEND Surgery
DX: C50.911 Malignant neoplasm of unspecified site of right female breast (principal); J45.909 Unspecified asthma, uncomplicated; I50.9 Heart failure, unspecified; F17.210 Nicotine dependence, cigarettes, uncomplicated; Z88.0 Allergy status to penicillin; Z91.018 Allergy to other foods; Z83.3 Family history of diabetes mellitus; Z82.49 Family history of ischemic heart disease and other diseases of the circulatory system; Z98.890 Other specified postprocedural states; Z98.891 History of uterine scar from previous surgery; Z20.822 Contact with and (suspected) exposure to COVID-19
CPT/HCPCS: 19301; 36415; 38525; 76642; 76942; 78195; 80053; 81001; 85007; 85027; 85610; 85730; 88305; 88342; A9541; J1100; J1170; J1885; J1956; J2001; J2250; J2405; J2704; J3010; U0003

== ENCOUNTER → 2022-12-04 | Outpatient (CLI) | payer BC ==
[~2022-12-04] MED LIST changes: +HYDR-4297 PO; -HYDR50TA15 PO; -LOSA-69 PO; +LOSA50TA46 PO
[2022-12-04 14:37] LABS: Basophils # (auto) 0 10 ^3/uL (0-0.2); Basophils % (auto) 0.7 % (0.0-2.0); Eosinophils # (auto) 0.2 10 ^3/uL (0-0.8); Eosinophils % (auto) 3.5 % (0.0-7.0); Hematocrit 37.2 % (36.0-46.0); Hemoglobin 12.3 g/dL (12.2-16.2); Lymphocytes # (auto) 0.7 10 ^3/uL (0.4-5.4); Lymphocytes % (auto) 13.8 % (10.0-50.0); Mean Corpuscular Hemoglobin 30.7 pg (28.0-32.0); Mean Corpuscular Volume 93.1 fL (80.0-100.0); Monocytes # (auto) 0.4 10 ^3/uL (0-1.3); Neutrophils # (auto) 3.5 10 ^3/uL (1.6-8.6); Red Blood Cells 3.99 10^6/uL (4.0-5.20); Red Cell Distribution Width 13.4 % (11.8-14.3); White Blood Cell 4.8 10^3/uL (4.4-10.8)
[2022-12-04 15:15] LABS: Albumin 3.7 g/dL (3.4-5.0); BUN/Creatinine Ratio 7.6 (10.0-20.0); Calcium 7.9 mg/dL (8.5-10.1); Potassium 4.5 mmol/L (3.5-5.1)
[2022-12-04 15:18] LABS: Bilirubin, Total 0.3 mg/dL (0.2-1.0)
== END | disposition home or self-care (01) ==
LOC: LAB 13:59
PROVIDERS: ATTEND Internal Medicine
DX: C50.911 Malignant neoplasm of unspecified site of right female breast (principal)
CPT/HCPCS: 36415; 80053; 82306; 83615; 85025; 86300

== ENCOUNTER → 2023-03-24 | Outpatient (CLI) | payer BC ==
[2023-03-24 09:52] LABS: Basophils # (auto) 0 10 ^3/uL (0-0.2); Basophils % (auto) 0.8 % (0.0-2.0); Eosinophils # (auto) 0.2 10 ^3/uL (0-0.8); Eosinophils % (auto) 4.3 % (0.0-7.0); Hematocrit 37.1 % (36.0-46.0); Hemoglobin 12.3 g/dL (12.2-16.2); Lymphocytes # (auto) 0.4 10 ^3/uL (0.4-5.4); Lymphocytes % (auto) 8.6 % (10.0-50.0); Mean Corpuscular Hemoglobin 30.9 pg (28.0-32.0); Mean Corpuscular Hgb Conc. 33.1 g/dL (32.0-36.0); Mean Corpuscular Volume 93.4 fL (80.0-100.0); Monocytes # (auto) 0.3 10 ^3/uL (0-1.3); Monocytes % (auto) 7.7 % (0.0-12.0); Neutrophils # (auto) 3.6 10 ^3/uL (1.6-8.6); Neutrophils % (auto) 78.6 % (37.0-80.0); Nucleated Red Blood Cells % 0.1 %; Red Blood Cells 3.97 10^6/uL (4.0-5.20); Red Cell Distribution Width 13.3 % (11.8-14.3); White Blood Cell 4.6 10^3/uL (4.4-10.8)
[2023-03-24 10:23] LABS: Albumin 4.3 g/dL (3.2-4.8); Alkaline Phosphatase 103 U/L (46-116); Anion Gap 9 (5-15); Aspartate Aminotransferase 9 U/L (13-40); BUN/Creatinine Ratio 6.9 (10.0-20.0); Bilirubin, Total 0.3 mg/dL (0.2-1.0); Blood Urea Nitrogen 23 mg/dL (9-23); Calcium 8.1 mg/dL (8.5-10.1); Carbon Dioxide 26 mmol/L (20-30); Chloride 106 mmol/L (98-107); Cholesterol 133 mg/dL (< 200); Glucose 58 mg/dL (74-106); HDL Cholesterol 42 mg/dL (40-59); LDL Cholesterol 74 mg/dL (< 100); Sodium 141 mmol/L (136-145); Total Protein 6.8 g/dL (5.7-8.2); Triglycerides 104 mg/dL (< 150)
[2023-03-24 10:42] LABS: Leuteinizing Hormone 15.3 IU/L
[2023-03-24 10:43] LABS: Follicle Stimulating Hormone 21.5 IU/L (SEE BELOW)
[2023-03-24 10:44] LABS: Free T4 (Free Thyroxine) 0.88 ng/dL (0.89-1.76)
[2023-03-24 10:52] LABS: Alanine Aminotransferase 9 U/L (7-40)
[2023-03-24 13:26] LABS: Erythrocyte Sedimentation Rate 8 mm/hr (0-20)
[2023-03-25 06:06] LABS: Estradiol 48.3 pg/mL (.)
[2023-03-25 10:33] LABS: Urine Bacteria FEW /hpf (None Seen); Urine Blood Negative /uL (Negative); Urine Clarity HAZY (Clear); Urine Color Yellow (Yellow); Urine Protein, UAD Negative (Negative); Urine Specific Gravity 1.009 (1.001-1.035); Urine Urobilinogen Normal (Negative); Urine WBC 2 /hpf (0 - 5); Urine pH 7.5 (5.0-8.0)
== END | disposition home or self-care (01) ==
LOC: LAB 09:16
PROVIDERS: ATTEND Internal Medicine
DX: K21.9 Gastro-esophageal reflux disease without esophagitis (principal); I10 Essential (primary) hypertension; N92.6 Irregular menstruation, unspecified
CPT/HCPCS: 36415; 80053; 80061; 81001; 82043; 82670; 83001; 83002; 83970; 84403; 84439; 84443; 84550; 85025; 85652

== ENCOUNTER → 2023-07-08 | Outpatient (CLI) | payer BC ==
[2023-07-08 09:25] LABS: Basophils # (auto) 0 10 ^3/uL (0-0.2); Basophils % (auto) 0.7 % (0.0-2.0); Eosinophils # (auto) 0.2 10 ^3/uL (0-0.8); Eosinophils % (auto) 3.9 % (0.0-7.0); Hematocrit 33.4 % (36.0-46.0); Hemoglobin 11.4 g/dL (12.2-16.2); Lymphocytes # (auto) 0.6 10 ^3/uL (0.4-5.4); Lymphocytes % (auto) 13.4 % (10.0-50.0); Mean Corpuscular Hemoglobin 31.3 pg (28.0-32.0); Mean Corpuscular Volume 91.9 fL (80.0-100.0); Monocytes # (auto) 0.4 10 ^3/uL (0-1.3); Monocytes % (auto) 10.1 % (0.0-12.0); Neutrophils # (auto) 3.1 10 ^3/uL (1.6-8.6); Neutrophils % (auto) 71.9 % (37.0-80.0); Nucleated Red Blood Cells % 0.1 %; Red Blood Cells 3.64 10^6/uL (4.0-5.20); Red Cell Distribution Width 13.2 % (11.8-14.3); White Blood Cell 4.4 10^3/uL (4.4-10.8)
[2023-07-08 10:20] LABS: Alanine Aminotransferase 13 U/L (7-40); Alkaline Phosphatase 88 U/L (46-116); Anion Gap 8 (5-15); Aspartate Aminotransferase 16 U/L (13-40); BUN/Creatinine Ratio 9.4 (10.0-20.0); Blood Urea Nitrogen 37 mg/dL (9-23); Calcium 9.2 mg/dL (8.5-10.1); Carbon Dioxide 21 mmol/L (20-30); Chloride 111 mmol/L (98-107); Glucose 75 mg/dL (74-106); Potassium 4.4 mmol/L (3.5-5.1); Sodium 140 mmol/L (136-145)
[2023-07-08 10:21] LABS: Albumin 4.2 g/dL (3.2-4.8); Bilirubin, Total 0.3 mg/dL (0.2-1.0); Total Protein 6.5 g/dL (5.7-8.2)
== END | disposition home or self-care (01) ==
LOC: LAB 09:01
PROVIDERS: ATTEND Internal Medicine
DX: C50.911 Malignant neoplasm of unspecified site of right female breast (principal)
CPT/HCPCS: 36415; 80053; 83615; 85025; 86300

== ENCOUNTER → 2023-08-11 | Outpatient (CLI) | payer BC | END | disposition home or self-care (01) | LOC: LAB 15:26 | PROVIDERS: ATTEND Internal Medicine | DX: D64.9 Anemia, unspecified (principal) | CPT/HCPCS: 82270 ==

== ENCOUNTER 2024-02-06 11:46 | Inpatient (IN) | payer BC, MEDICAID ==
[~2024-02-06] VITALS: Ht 154.9 cm; Wt 58.6 kg
[~2024-02-06 11:46] MED LIST changes: -CAR3125T PO; +CARV-214 PO; -HYDR-4297 PO; +HYDR50TA47 PO; +LOSA-534 PO; -LOSA50TA46 PO
[2024-02-06] MEDS: LABETALOL HCL 20 MG/4 ML VL IV ONE (13:05)
[2024-02-06] MEDS: hydrALAZINE HCL 20 MG/ML VL IV ONE ×2 (13:05→13:54)
[2024-02-06] MEDS: ONDANSETRON HCL 4 MG/2 ML VIAL IV ONE (13:55)
[2024-02-06 14:14] LABS: Alanine Aminotransferase 14 U/L (7-40); Alkaline Phosphatase 93 U/L (46-116); Calcium 9.4 mg/dL (8.7-10.4); Carbon Dioxide 21 mmol/L (20-30); Chloride 100 mmol/L (98-107)
[2024-02-06 14:15] LABS: Albumin 4.5 g/dL (3.2-4.8); Anion Gap 11 (5-15); Aspartate Aminotransferase 10 U/L (13-40); BUN/Creatinine Ratio 4.7 (10.0-20.0); Bilirubin, Total 0.6 mg/dL (0.2-1.0); Blood Urea Nitrogen 22 mg/dL (9-23); Glucose 84 mg/dL (74-106); Magnesium 1.6 mg/dL (1.6-2.6); Potassium 3.5 mmol/L (3.5-5.1); Sodium 132 mmol/L (136-145); Total Protein 7.2 g/dL (5.7-8.2)
[2024-02-06] MEDS: NIFEdipine 10 MG CAP PO ONE (14:28)
[2024-02-06] MEDS: CARVEDILOL 3.125 MG TAB PO ONE (14:29)
[2024-02-06 15:02] LABS: Basophils # (auto) 0 10 ^3/uL (0-0.2); Basophils % (auto) 0.2 % (0.0-2.0); Eosinophils # (auto) 0 10 ^3/uL (0-0.8); Hematocrit 37.3 % (36.0-46.0); Hemoglobin 12.8 g/dL (12.2-16.2); Lymphocytes # (auto) 0.2 10 ^3/uL (0.4-5.4); Lymphocytes % (auto) 1.5 % (10.0-50.0); Mean Corpuscular Hemoglobin 31.2 pg (28.0-32.0); Mean Corpuscular Hgb Conc. 34.2 g/dL (32.0-36.0); Mean Corpuscular Volume 91.3 fL (80.0-100.0); Monocytes # (auto) 0.8 10 ^3/uL (0-1.3); Monocytes % (auto) 6.1 % (0.0-12.0); Neutrophils # (auto) 11.3 10 ^3/uL (1.6-8.6); Neutrophils % (auto) 92.2 % (37.0-80.0); Red Blood Cells 4.09 10^6/uL (4.0-5.20); Red Cell Distribution Width 13.2 % (11.8-14.3); White Blood Cell 12.3 10^3/uL (4.4-10.8)
[2024-02-06 15:11] LABS: Platelet Count (auto) 67 10^3/uL (140-450)
[2024-02-06 15:33] LABS: Urine Bacteria MANY /hpf (None Seen); Urine Blood 1+ /uL (Negative); Urine Clarity Clear (Clear); Urine Color Light-Yellow (Yellow); Urine Mucus FEW (None Seen); Urine Protein, UAD 3+ (Negative); Urine Specific Gravity 1.011 (1.001-1.035); Urine Urobilinogen Normal (Negative); Urine WBC 4 /hpf (0 - 5)
[2024-02-06] MEDS: cefTRIAXone 1GM/50ML D5W 50 ML IV ONE (15:40)
[2024-02-06] MEDS: ACETAMINOPHEN 325 MG TAB PO ONE (15:40)
[2024-02-06 17:33] LABS: COVID19 ANTIGEN SOFIA FIA NEGATIVE (NEGATIVE); Rapid Influenza A Negative (Negative); Rapid Influenza B Negative (Negative)
[2024-02-06] MEDS: SODIUM CHLOR 0.9% PF (SALINE LOCK) 10ML VIAL/SYR IV SCH (22:02)
[2024-02-06] MEDS: levoFLOXacin 250MG 50 ML IV SCH (22:04)
[2024-02-06] MEDS: CARVEDILOL 12.5 MG TAB PO SCH (22:05)
[2024-02-06] MEDS ORDERED: NITROGLYCERIN 0.4 MG SL TAB SL PRN (22:45)
[2024-02-06] MEDS ORDERED: MORPHINE SULFATE INJ 2 MG/ml SYRG IV PRN (22:45)
[2024-02-06] MEDS: hydrALAZINE HCL 20 MG/ML VL IV PRN (23:58)
[2024-02-07] MEDS: HYDROcodone-ACET 5/325MG TAB PO PRN (00:50)
[2024-02-07] MEDS: ACETAMINOPHEN 325 MG TAB PO PRN (01:15)
[2024-02-07 05:37] LABS: Basophils # (auto) 0 10 ^3/uL (0-0.2); Basophils % (auto) 0.1 % (0.0-2.0); Eosinophils # (auto) 0 10 ^3/uL (0-0.8); Hematocrit 34.4 % (36.0-46.0); Hemoglobin 11.9 g/dL (12.2-16.2); Lymphocytes # (auto) 0.2 10 ^3/uL (0.4-5.4); Lymphocytes % (auto) 1.5 % (10.0-50.0); Mean Corpuscular Hemoglobin 31.3 pg (28.0-32.0); Mean Corpuscular Hgb Conc. 34.4 g/dL (32.0-36.0); Mean Corpuscular Volume 90.7 fL (80.0-100.0); Monocytes # (auto) 0.8 10 ^3/uL (0-1.3); Monocytes % (auto) 7.2 % (0.0-12.0); Neutrophils # (auto) 10.1 10 ^3/uL (1.6-8.6); Neutrophils % (auto) 91.2 % (37.0-80.0); Platelet Count (auto) 65 10^3/uL (140-450); Red Cell Distribution Width 13.7 % (11.8-14.3); White Blood Cell 11.1 10^3/uL (4.4-10.8)
[2024-02-07 05:54] LABS: Alkaline Phosphatase 80 U/L (46-116); Anion Gap 11 (5-15); Aspartate Aminotransferase 10 U/L (13-40); BUN/Creatinine Ratio 5.7 (10.0-20.0); Blood Urea Nitrogen 30 mg/dL (9-23); Carbon Dioxide 20 mmol/L (20-30); Chloride 99 mmol/L (98-107); Glucose 104 mg/dL (74-106); Potassium 3.7 mmol/L (3.5-5.1); Sodium 130 mmol/L (136-145)
[2024-02-07 05:55] LABS: Bilirubin, Total 0.3 mg/dL (0.2-1.0); Total Protein 6.4 g/dL (5.7-8.2)
[2024-02-07 05:59] LABS: Alanine Aminotransferase 9 U/L (7-40)
[2024-02-07 08:00] VITALS: PULSE 64; RESP 18; O2SAT 95
[2024-02-07] MEDS: DOCUSATE SOD 100 MG CAP PO PRN (08:39)
[2024-02-07] MEDS: SEVELAMER 800 MG TAB PO SCH (08:39)
[2024-02-07] MEDS: B-COMPLEX W/ C & FOLIC ACID(NEPHROVITE TAB) PO SCH (10:43)
[2024-02-07] MEDS: NIFEdipine ER 30 MG TAB PO SCH (10:44)
[2024-02-07 13:00] VITALS: BP 150/98; PULSE 67; RESP 22; TEMP 97.8; O2SAT 97
[2024-02-07 14:03] VITALS: RESP 16
[2024-02-07] MEDS ORDERED: NIFE1TAB30 (14:50)
[2024-02-07] MEDS ORDERED: ALBU108A5 INH (14:50)
[2024-02-07] MEDS ORDERED: MAALOX PLUS or MAALOX 30 ML PO PRN (16:45)
[2024-02-07 17:00] VITALS: BP 149/97; PULSE 80; RESP 18; TEMP 98.7; O2SAT 93
[2024-02-07] MEDS: FAMOTIDINE 20 MG TAB PO ONE (18:09)
[2024-02-07 20:00] VITALS: PULSE 76
[2024-02-07 21:00] VITALS: BP 169/111; PULSE 82; RESP 21; TEMP 99; O2SAT 96
[2024-02-08] VITALS (9 sets, daily range): BP systolic 121–169; BP diastolic 77–109; PULSE 71–92; RESP 17–22; TEMP 97.4–98.7; O2SAT 91–98
[2024-02-08] MEDS: SODIUM CHL 0.9% 1000 ML BAG XX ONE (07:00)
[2024-02-08] MEDS: ONDANSETRON HCL 4 MG/2 ML VIAL IV PRN (08:53)
[2024-02-08] MEDS ORDERED: IOHEXOL 350 MG/ML 100ML IJ ONE (10:56)
[2024-02-08] MEDS: LOSARTAN POTASSIUM 50 MG TAB PO SCH (12:02)
[2024-02-08] MEDS: NIFEdipine ER 30 MG TAB PO SCH ×2 (12:03→21:04)
[2024-02-09] VITALS (9 sets, daily range): BP systolic 115–131; BP diastolic 72–96; PULSE 65–97; RESP 14–21; TEMP 98–99; O2SAT 92–96
[2024-02-09 06:09] LABS: Chloride 95 mmol/L (98-107); Potassium 3.2 mmol/L (3.5-5.1); Sodium 130 mmol/L (136-145)
[2024-02-09 06:10] LABS: Anion Gap 11 (5-15); Carbon Dioxide 24 mmol/L (20-30)
[2024-02-09 06:11] LABS: Calcium 8.9 mg/dL (8.7-10.4)
[2024-02-09 06:15] LABS: BUN/Creatinine Ratio 5.5 (10.0-20.0); Blood Urea Nitrogen 20 mg/dL (9-23); Glucose 127 mg/dL (74-106)
[2024-02-09 07:31] LABS: INR 1.08 (0.9-1.15); Partial Thromboplastin Time 40.9 SEC (24.5-34.5); Prothrombin Time 11.4 sec (9.3-11.8)
[2024-02-09] MEDS: FAMOTIDINE 20 MG TAB PO SCH (09:14)
[2024-02-09] MEDS: LORazepam 2MG/ML-1ML VIAL IV PRN (11:51)
[2024-02-09] MEDS: MEROPENEM 1GM IVPB 50 ML IV ONE (12:15)
[2024-02-09] MEDS ORDERED: LIDOCAINE 2% (LOCAL ANESTH.) PF 5ml SDV ONE (13:13)
[2024-02-09] MEDS: VANCOMYCIN 1GM/200ML 200 ML IV ONE (13:17)
[2024-02-09] MEDS ORDERED: diphenhdrAMINE HCL 50 MG/1 ML VL IV PRN (20:00)
[2024-02-09] MEDS ORDERED: LORazepam 2MG/ML-1ML VIAL IV PRN (21:00)
[2024-02-09] MEDS ORDERED: TEMAZEPAM 15 MG CAP PO ONE (23:00)
[2024-02-09] MEDS: TEMAZEPAM 15 MG CAP PO ONE (23:21)
[2024-02-10] VITALS (7 sets, daily range): BP systolic 118–135; BP diastolic 80–89; PULSE 75–87; RESP 14–20; TEMP 98.1–99; O2SAT 88–95
[2024-02-10 06:52] LABS: Basophils # (auto) 0 10 ^3/uL (0-0.2); Basophils % (auto) 0.2 % (0.0-2.0); Eosinophils # (auto) 0.1 10 ^3/uL (0-0.8); Eosinophils % (auto) 0.5 % (0.0-7.0); Hematocrit 34.5 % (36.0-46.0); Hemoglobin 11.9 g/dL (12.2-16.2); Lymphocytes # (auto) 0.4 10 ^3/uL (0.4-5.4); Lymphocytes % (auto) 4.3 % (10.0-50.0); Mean Corpuscular Hemoglobin 31.6 pg (28.0-32.0); Mean Corpuscular Hgb Conc. 34.4 g/dL (32.0-36.0); Monocytes # (auto) 1.5 10 ^3/uL (0-1.3); Monocytes % (auto) 14.5 % (0.0-12.0); Neutrophils # (auto) 8.2 10 ^3/uL (1.6-8.6); Neutrophils % (auto) 80.5 % (37.0-80.0); Platelet Count (auto) 109 10^3/uL (140-450); Red Blood Cells 3.75 10^6/uL (4.0-5.20); Red Cell Distribution Width 13.9 % (11.8-14.3); White Blood Cell 10.2 10^3/uL (4.4-10.8)
[2024-02-10 07:13] LABS: Alanine Aminotransferase 12 U/L (7-40); Albumin 3.7 g/dL (3.2-4.8); Alkaline Phosphatase 84 U/L (46-116); Anion Gap 9 (5-15); Aspartate Aminotransferase < 8 U/L (13-40); BUN/Creatinine Ratio 6.8 (10.0-20.0); Bilirubin, Total 0.2 mg/dL (0.2-1.0); Calcium 8.9 mg/dL (8.7-10.4); Carbon Dioxide 25 mmol/L (20-30); Chloride 98 mmol/L (98-107); Glucose 99 mg/dL (74-106); Potassium 3.2 mmol/L (3.5-5.1); Sodium 132 mmol/L (136-145); Total Protein 5.9 g/dL (5.7-8.2)
[2024-02-10 07:14] LABS: Blood Urea Nitrogen 31 mg/dL (9-23)
[2024-02-10] MEDS: MEROPENEM 1GM IVPB 50 ML IV SCH (10:05)
[2024-02-10] MEDS: POTASSIUM CHL 20 Meq TABLET PO ONE (10:09)
[2024-02-10] MEDS: LORazepam 2MG/ML-1ML VIAL IV ONE (11:11)
[2024-02-11] VITALS (10 sets, daily range): BP systolic 134–165; BP diastolic 81–114; PULSE 75–100; RESP 10–19; TEMP 97.7–99.1; O2SAT 93–99
[2024-02-11 06:32] LABS: Alkaline Phosphatase 91 U/L (46-116); Anion Gap 11 (5-15); BUN/Creatinine Ratio 6.4 (10.0-20.0); Blood Urea Nitrogen 33 mg/dL (9-23); Calcium 9.2 mg/dL (8.7-10.4); Carbon Dioxide 21 mmol/L (20-30); Chloride 99 mmol/L (98-107); Glucose 94 mg/dL (74-106); Potassium 3.5 mmol/L (3.5-5.1); Sodium 131 mmol/L (136-145)
[2024-02-11 06:33] LABS: Albumin 3.9 g/dL (3.2-4.8); Aspartate Aminotransferase < 8 U/L (13-40)
[2024-02-11 06:34] LABS: Alanine Aminotransferase < 9 U/L (7-40); Bilirubin, Total 0.2 mg/dL (0.2-1.0); Total Protein 6.5 g/dL (5.7-8.2)
[2024-02-11 06:57] LABS: Hematocrit 36.3 % (36.0-46.0); Hemoglobin 12.3 g/dL (12.2-16.2); Mean Corpuscular Hemoglobin 31.4 pg (28.0-32.0); Mean Corpuscular Hgb Conc. 33.9 g/dL (32.0-36.0); Mean Corpuscular Volume 92.7 fL (80.0-100.0); Platelet Count (auto) 145 10^3/uL (140-450); Red Blood Cells 3.92 10^6/uL (4.0-5.20); Red Cell Distribution Width 13.7 % (11.8-14.3)
[2024-02-11 07:16] LABS: Basophils % (manual) 0 (0.0-2.0); Myelocytes % 0; Promyelocytes % 0
[2024-02-11 07:17] LABS: Blast Cells 0; Reactive Lymphocytes 0
[2024-02-11] MEDS: LIDOCAINE VISCOUS 2% 15ML UD PO ONE (09:00)
[2024-02-11] MEDS: MIDAZOLAM HCL 2MG/2ML 2ml VIAL (1mg/ml) IV ONE (09:00)
[2024-02-11] MEDS: fentaNYL CITRATE 100 MCG/2 ML VL IV ONE (09:03)
[2024-02-11] MEDS ORDERED: VANCOMYCIN PER PHARMACY 0 MG IV SCH (10:30)
[2024-02-11 10:33] LABS: Band Neutrophils % (manual) 6; Eosinophils % (manual) 3 (0-7); Lymphocytes % (manual) 10 (10.0-50.0); Metamyelocytes % 1; Monocytes % (manual) 7 (0-12); Platelet Estimate Adequate
[2024-02-11] MEDS: VANCOMYCIN 1GM/200ML 200 ML IV ONE (11:08)
[2024-02-12] VITALS (12 sets, daily range): BP systolic 127–167; BP diastolic 85–114; PULSE 70–94; RESP 14–20; TEMP 97.8–98.4; O2SAT 93–99
[2024-02-12 06:07] LABS: Hematocrit 35.6 % (36.0-46.0); Hemoglobin 12.5 g/dL (12.2-16.2); Mean Corpuscular Hemoglobin 32.1 pg (28.0-32.0); Mean Corpuscular Hgb Conc. 35.1 g/dL (32.0-36.0); Mean Corpuscular Volume 91.6 fL (80.0-100.0); Platelet Count (auto) 197 10^3/uL (140-450); Red Blood Cells 3.89 10^6/uL (4.0-5.20); Red Cell Distribution Width 13.6 % (11.8-14.3); White Blood Cell 10.1 10^3/uL (4.4-10.8)
[2024-02-12 06:14] LABS: Alkaline Phosphatase 88 U/L (46-116); Calcium 9.2 mg/dL (8.7-10.4)
[2024-02-12 06:15] LABS: Albumin 3.9 g/dL (3.2-4.8); Anion Gap 12 (5-15); Aspartate Aminotransferase 9 U/L (13-40); BUN/Creatinine Ratio 6.5 (10.0-20.0); Bilirubin, Total 0.2 mg/dL (0.2-1.0); Blood Urea Nitrogen 34 mg/dL (9-23); Carbon Dioxide 18 mmol/L (20-30); Chloride 101 mmol/L (98-107); Glucose 99 mg/dL (74-106); Magnesium 2.3 mg/dL (1.6-2.6); Potassium 3.8 mmol/L (3.5-5.1); Sodium 131 mmol/L (136-145); Total Protein 6.7 g/dL (5.7-8.2)
[2024-02-12 06:29] LABS: Alanine Aminotransferase < 9 U/L (7-40)
[2024-02-12 06:33] LABS: Basophils % (manual) 0 (0.0-2.0); Blast Cells 0; Eosinophils % (manual) 0 (0-7); Myelocytes % 0; Promyelocytes % 0; Reactive Lymphocytes 0
[2024-02-12] MEDS: fentaNYL CITRATE 100 MCG/2 ML VL ONE (09:13)
[2024-02-12] MEDS: MIDAZOLAM HCL 2MG/2ML 2ml VIAL (1mg/ml) ONE (09:14)
[2024-02-12] MEDS: LIDOCAINE 2%HCL (LOCAL ANESTH.) INJ 20ML MDV ONE (09:14)
[2024-02-12] MEDS: HEPARIN SODIUM (PORCINE) 5000 UNITS/ML 1ML VIAL ONE (10:06)
[2024-02-12] MEDS: ceFAZolin 1GM/50ML 50 ML IV ONE (10:11)
[2024-02-12] MEDS: IODIXANOL 320MG/ML 100ML BTL IV ONE (10:50)
[2024-02-12 11:15] LABS: Band Neutrophils % (manual) 6; Lymphocytes % (manual) 6 (10.0-50.0); Metamyelocytes % 2; Monocytes % (manual) 10 (0-12)
[2024-02-12 11:16] LABS: Platelet Estimate Adequate
[2024-02-12] MEDS ORDERED: SODIUM CHL 0.9% 1000 ML BAG XX ONE (16:45)
[2024-02-13] VITALS (7 sets, daily range): BP systolic 134–151; BP diastolic 87–110; PULSE 71–93; RESP 16–19; TEMP 97.6–98.5; O2SAT 92–97
[2024-02-13 06:17] LABS: Hematocrit 31.8 % (36.0-46.0); Mean Corpuscular Hemoglobin 32.1 pg (28.0-32.0); Mean Corpuscular Hgb Conc. 34.7 g/dL (32.0-36.0); Mean Corpuscular Volume 92.4 fL (80.0-100.0); Platelet Count (auto) 178 10^3/uL (140-450); Red Blood Cells 3.44 10^6/uL (4.0-5.20); Red Cell Distribution Width 13.7 % (11.8-14.3); White Blood Cell 6.5 10^3/uL (4.4-10.8)
[2024-02-13 06:25] LABS: Band Neutrophils % (manual) 0; Basophils % (manual) 0 (0.0-2.0); Blast Cells 0; Promyelocytes % 0; Reactive Lymphocytes 0
[2024-02-13 06:39] LABS: Alkaline Phosphatase 83 U/L (46-116); Anion Gap 8 (5-15); BUN/Creatinine Ratio 4.5 (10.0-20.0); Blood Urea Nitrogen 14 mg/dL (9-23); Calcium 8.8 mg/dL (8.7-10.4); Carbon Dioxide 24 mmol/L (20-30); Chloride 103 mmol/L (98-107); Glucose 89 mg/dL (74-106); Magnesium 2.2 mg/dL (1.6-2.6); Potassium 3.7 mmol/L (3.5-5.1); Sodium 135 mmol/L (136-145)
[2024-02-13 06:40] LABS: Albumin 3.7 g/dL (3.2-4.8); Bilirubin, Total 0.2 mg/dL (0.2-1.0); Total Protein 6.2 g/dL (5.7-8.2)
[2024-02-13 06:42] LABS: Alanine Aminotransferase < 9 U/L (7-40); Aspartate Aminotransferase < 8 U/L (13-40)
[2024-02-13 07:01] LABS: Eosinophils % (manual) 2 (0-7); Lymphocytes % (manual) 17 (10.0-50.0); Metamyelocytes % 2; Monocytes % (manual) 17 (0-12); Myelocytes % 1; Platelet Estimate Adequate
[2024-02-13] MEDS: VANCOMYCIN 500 MG in D5W 5% 100 ML IV ONE (15:12)
[2024-02-14] VITALS (9 sets, daily range): BP systolic 131–155; BP diastolic 74–106; PULSE 82–91; RESP 18–20; TEMP 97.4–98.3; O2SAT 93–97
[2024-02-14] MEDS: LACTULOSE 20Gm/30ML SOLN PO PRN (15:24)
== END 2024-02-14 21:00 | disposition short-term general hospital (02) | DRG 871 ==
LOC: EDBD 11:46 → EDUNIT# 11:46 → ER 11:46 → TELE 22:40 → TELE-WESTW 02-07 12:33 → TELE-CENTR 02-11 17:38
PROVIDERS: ADMIT Nurse Practitioner Family; ATTEND Internal Medicine Geriatric Medicine
PROC: 5A1D70Z Performance of Urinary Filtration, Intermittent, Less than 6 Hours Per Day (ICD-10-PCS; 2024-02-08)
PROC: 0JPTXXZ Removal of Tunneled Vascular Access Device from Trunk Subcutaneous Tissue and Fascia, External Approach (ICD-10-PCS; 2024-02-09)
PROC: B24BZZ4 Ultrasonography of Heart with Aorta, Transesophageal (ICD-10-PCS; principal; 2024-02-11)
PROC: 0JH63XZ Insertion of Tunneled Vascular Access Device into Chest Subcutaneous Tissue and Fascia, Percutaneous Approach (ICD-10-PCS; 2024-02-12)
PROC: 02H633Z Insertion of Infusion Device into Right Atrium, Percutaneous Approach (ICD-10-PCS; 2024-02-12)
PROC: B518YZA Fluoroscopy of Superior Vena Cava using Other Contrast, Guidance (ICD-10-PCS; 2024-02-12)
PROC: B548ZZA Ultrasonography of Superior Vena Cava, Guidance (ICD-10-PCS; 2024-02-12)
PROC: 5A1D70Z Performance of Urinary Filtration, Intermittent, Less than 6 Hours Per Day (ICD-10-PCS; 2024-02-12)
DX: A41.02 Sepsis due to Methicillin resistant Staphylococcus aureus (principal); I33.0 Acute and subacute infective endocarditis; N18.6 End stage renal disease; I16.1 Hypertensive emergency; E87.1 Hypo-osmolality and hyponatremia; H05.011 Cellulitis of right orbit; T82.7XXA Infection and inflammatory reaction due to other cardiac and vascular devices, implants and grafts, initial encounter; L03.213 Periorbital cellulitis; I12.0 Hypertensive chronic kidney disease with stage 5 chronic kidney disease or end stage renal disease; Z20.822 Contact with and (suspected) exposure to COVID-19; D64.9 Anemia, unspecified; D69.6 Thrombocytopenia, unspecified; J44.89 Other specified chronic obstructive pulmonary disease; I51.3 Intracardiac thrombosis, not elsewhere classified; F17.200 Nicotine dependence, unspecified, uncomplicated; Z99.2 Dependence on renal dialysis; Z90.49 Acquired absence of other specified parts of digestive tract; Z91.199 Patient's noncompliance with other medical treatment and regimen due to unspecified reason; Z82.49 Family history of ischemic heart disease and other diseases of the circulatory system; Z88.0 Allergy status to penicillin; Z83.3 Family history of diabetes mellitus; Y84.1 Kidney dialysis as the cause of abnormal reaction of the patient, or of later complication, without mention of misadventure at the time of the procedure; Y92.239 Unspecified place in hospital as the place of occurrence of the external cause
CPT/HCPCS: 36415; 36558; 70450; 70496; 70540; 70545; 70551; 71045; 77001; 80048; 80053; 80202; 81001; 82565; 83735; 84484; 84702; 85007; 85025; 85027; 85610; 85730; 86850; 86900; 86901; 87040; 87070; 87077; 87147; 87186; 87340; 87426; 87804; 90935; 93005; 93306; 93312; 99152; C1894; G0378; J1642; J2001; J2185; J2250; J2405; J7060; Q9967

== ENCOUNTER → 2024-07-04 | Outpatient (CLI) | payer BC, MEDICAID ==
[~2024-07-04] MED LIST changes: +ALBU108A5 INH; -CARV-214 PO; -ERGO1CAP23 PO; -HYDR50TA47 PO; -LOSA-534 PO; +NIFE1TAB30; -NIFE1TAB31 PO
[2024-07-04 11:55] LABS: Basophils # (auto) 0 10 ^3/uL (0-0.2); Eosinophils # (auto) 0.1 10 ^3/uL (0-0.8); Eosinophils % (auto) 2.7 % (0.0-7.0); Hematocrit 27.6 % (36.0-46.0); Hemoglobin 9.5 g/dL (12.2-16.2); Lymphocytes # (auto) 0.5 10 ^3/uL (0.4-5.4); Lymphocytes % (auto) 15.6 % (10.0-50.0); Mean Corpuscular Hemoglobin 32.2 pg (28.0-32.0); Mean Corpuscular Hgb Conc. 34.4 g/dL (32.0-36.0); Mean Corpuscular Volume 93.7 fL (80.0-100.0); Monocytes # (auto) 0.3 10 ^3/uL (0-1.3); Monocytes % (auto) 9.4 % (0.0-12.0); Neutrophils # (auto) 2.4 10 ^3/uL (1.6-8.6); Neutrophils % (auto) 71.3 % (37.0-80.0); Platelet Count (auto) 128 10^3/uL (140-450); Red Blood Cells 2.95 10^6/uL (4.0-5.20); Red Cell Distribution Width 13.3 % (11.8-14.3); White Blood Cell 3.3 10^3/uL (4.4-10.8)
[2024-07-04 12:39] LABS: Alanine Aminotransferase 23 U/L (7-40); Anion Gap 11 (5-15); BUN/Creatinine Ratio 5.2 (10.0-20.0); Blood Urea Nitrogen 20 mg/dL (9-23); Calcium 9.7 mg/dL (8.7-10.4); Carbon Dioxide 27 mmol/L (20-31); Chloride 101 mmol/L (98-107); Glucose 98 mg/dL (74-106); Potassium 3.5 mmol/L (3.5-5.1); Sodium 139 mmol/L (136-145)
[2024-07-04 12:40] LABS: Bilirubin, Total 0.4 mg/dL (0.2-1.0); Total Protein 6.9 g/dL (5.7-8.2)
[2024-07-04 12:47] LABS: Albumin 4.8 g/dL (3.2-4.8); Alkaline Phosphatase 128 U/L (46-116); Aspartate Aminotransferase 11 U/L (13-40)
== END | disposition home or self-care (01) ==
LOC: LAB 11:21
PROVIDERS: ATTEND Internal Medicine
DX: I10 Essential (primary) hypertension (principal); L03.213 Periorbital cellulitis
CPT/HCPCS: 36415; 80053; 84439; 84443; 85025; 87040

== ENCOUNTER 2024-09-12 06:16 | Day surgery (SDC) | payer BC, MEDICARE, MEDICAID ==
[2024-09-08 14:37] LABS: Basophils # (auto) 0 10 ^3/uL (0-0.2); Eosinophils # (auto) 0.1 10 ^3/uL (0-0.8); Eosinophils % (auto) 3.2 % (0.0-7.0); Hemoglobin 11.6 g/dL (12.2-16.2); Lymphocytes # (auto) 0.5 10 ^3/uL (0.4-5.4); Lymphocytes % (auto) 12.2 % (10.0-50.0); Mean Corpuscular Hemoglobin 31.2 pg (28.0-32.0); Mean Corpuscular Hgb Conc. 33.1 g/dL (32.0-36.0); Mean Corpuscular Volume 94.2 fL (80.0-100.0); Monocytes # (auto) 0.4 10 ^3/uL (0-1.3); Monocytes % (auto) 9.9 % (0.0-12.0); Neutrophils # (auto) 3.2 10 ^3/uL (1.6-8.6); Neutrophils % (auto) 73.7 % (37.0-80.0); Nucleated Red Blood Cells % 0.1 %; Platelet Count (auto) 133 10^3/uL (140-450); Red Blood Cells 3.72 10^6/uL (4.0-5.20); Red Cell Distribution Width 13.1 % (11.8-14.3); White Blood Cell 4.4 10^3/uL (4.4-10.8)
[2024-09-08 14:50] LABS: INR 0.98 (0.9-1.15); Partial Thromboplastin Time 26.8 SEC (24.5-34.5); Prothrombin Time 10.4 sec (9.3-11.8)
[2024-09-08 17:35] LABS: Alanine Aminotransferase 25 U/L (7-40); Anion Gap 12 (5-15); Aspartate Aminotransferase 14 U/L (13-40); BUN/Creatinine Ratio 5.8 (10.0-20.0); Calcium 10.2 mg/dL (8.7-10.4); Carbon Dioxide 22 mmol/L (20-31); Chloride 105 mmol/L (98-107); Potassium 4.1 mmol/L (3.5-5.1); Sodium 139 mmol/L (136-145); Total Protein 7.4 g/dL (5.7-8.2)
[2024-09-08 18:08] LABS: Albumin 5.2 g/dL (3.2-4.8); Alkaline Phosphatase 128 U/L (46-116); Bilirubin, Total 0.3 mg/dL (0.2-1.0); Blood Urea Nitrogen 35 mg/dL (9-23); Glucose 118 mg/dL (74-106)
[2024-09-09 14:12] LABS: Urine Bacteria None Seen /hpf (None Seen)
[2024-09-09 14:17] LABS: Urine Blood Negative /uL (Negative); Urine Clarity Turbid (Clear); Urine Color Light-Yellow (Yellow); Urine Protein, UAD Negative (Negative); Urine Specific Gravity 1.005 (1.001-1.035); Urine Squamous Epithelial Cell None Seen /hpf (<5); Urine Urobilinogen Normal (Negative); Urine WBC 1 /HPF (0-5)
[~2024-09-12] VITALS: Ht 154.9 cm; Wt 52.6 kg
[~2024-09-12 06:16] MED LIST changes: -ALBU108A5 INH; +APIX2.5T PO; +B-COCAP23 OR; -CLON0.1T PO; -GALC120I SC; +RIZA10TA12 PO; -RIZA10TA50 PO
[2024-09-12] MEDS ORDERED: fentaNYL CITRATE 100 MCG/2 ML VL ONE ×2 (06:23→08:31)
[2024-09-12] MEDS ORDERED: PROPOFOL 10 MG/ML 20 ML IV ONE (06:24)
[2024-09-12] MEDS ORDERED: ceFAZolin 2 GM/D5W50ml 50 ML IV ONE (06:27)
[2024-09-12] MEDS ORDERED: SUCCINYLCHOLINE CHLORIDE 20 MG/ML 10ML VIAL IV ONE (06:28)
[2024-09-12] MEDS ORDERED: HEPARIN SODIUM (PORCINE) 5000 UNITS/ML 1ML VIAL ONE (07:10)
[2024-09-12] MEDS ORDERED: LIDOCAINE 1% HCL (LOCAL ANESTH.) INJ 20ML MDV ONE (07:10)
[2024-09-12] MEDS ORDERED: ceFAZolin 1GM VL ONE (07:11)
[2024-09-12] MEDS ORDERED: HEPARIN 1,000 UNITS/ml 1ML VIAL ONE (07:11)
[2024-09-12] MEDS ORDERED: ROCURONIUM 10MG/ML 10ML VIAL IV ONE (07:46)
[2024-09-12] MEDS ORDERED: ONDANSETRON HCL 4 MG/2 ML VIAL ONE (07:48)
[2024-09-12] MEDS ORDERED: ePHEDrine SULFATE 50 MG/ML AMP ONE (07:51)
[2024-09-12] MEDS ORDERED: PHENYLEPHRINE HCL 10 MG/ML VL ONE (08:06)
[2024-09-12] MEDS ORDERED: SUGAMMADEX 200mg/2ml Vial (100MG/ML) IV ONE (08:28)
[2024-09-12 08:45] VITALS: TEMP 97.5; O2SAT 98
[2024-09-12] MEDS ORDERED: ACE3T PO (08:50)
[2024-09-12] MEDS ORDERED: ACETAMINOPHEN IV 1000 MG/100ML (10MG/ML) IV PRN (09:00)
[2024-09-12] MEDS ORDERED: ONDANSETRON HCL 4 MG/2 ML VIAL IV ONE (09:00)
[2024-09-12] MEDS ORDERED: HYDROmorphone HCL 2 MG/ML VL/or syr IV PRN (09:00)
--- NOTE | 2024-09-12 09:24 | DVHOP ---
DATE OF SURGERY: 09/12/2024 PREOPERATIVE DIAGNOSIS: Renal failure. POSTOPERATIVE DIAGNOSIS: Renal failure. SURGEON: Gt Tobias MD HANDKERCHIEF SAMPLE CLERK: Jaguar Morse. ANESTHESIA: General endotracheal. ANESTHESIOLOGIST: Dr. Barbosa. PROCEDURE: Laparoscopy, laparoscopic insertion of peritoneal dialysis catheter. DESCRIPTION OF PROCEDURE: Under general endotracheal anesthesia, with the patient's skin prepped and draped, a supraumbilical incision was made and Veress needle inserted by the hanging drop technique to establish pneumoperitoneum to 15 mmHg pressure by insufflation with carbon dioxide. With the abdomen fully distended, the Veress needle was removed and replaced with a 5 mm trocar port, through which a 0-degree viewing laparoscope was inserted and laparoscopy was performed revealing no obvious unexpected pathology and the peritoneal surfaces visualized. The bladder was distended with urine, which was then postoperatively drained by in and out catheterization. The peritoneal dialysis catheter was advanced through the 5 mm trocar port site into the pelvis, following which a counter incision was made along the patient's left lateral abdominal wall, through which another 5 mm port site was inserted, through which instrumentation was introduced and the catheter was then directed into the pelvis and test irrigation of the catheter was performed. The catheter was heparin flushed. Xithrone pledgets were placed beneath the skin and subcutaneous tissues and just above the fascia. Wounds were irrigated with antibiotic solution. Approximation of the wounds accomplished utilizing Monocryl sutures, Dermabond glue and Steri-Strips. The patient remained stable throughout the procedure, left the operating room following an accurate needle and sponge count. Her mother was thoroughly informed in the waiting room. MD VADIM Roth/SYLVIA TID: [id number] RECEIPT: [id number]
[2024-09-12 10:15] VITALS: BP 102/69; PULSE 66; RESP 13; O2SAT 99
== END 2024-09-12 10:30 | disposition home or self-care (01) ==
LOC: SUR 06:16
PROVIDERS: ATTEND Surgery
DX: I12.0 Hypertensive chronic kidney disease with stage 5 chronic kidney disease or end stage renal disease (principal); N18.6 End stage renal disease; Z79.899 Other long term (current) drug therapy; Z86.2 Personal history of diseases of the blood and blood-forming organs and certain disorders involving the immune mechanism; Z86.718 Personal history of other venous thrombosis and embolism; Z88.0 Allergy status to penicillin; Z99.2 Dependence on renal dialysis
CPT/HCPCS: 36415; 49324; 80053; 81001; 81025; 84702; 85025; 85610; 85730; 86850; 86900; 86901; C1750; J0330; J0690; J1644; J2003; J2371; J2405; J2704; J3010; J7040; 75716; 99152

== ENCOUNTER 2025-01-13 11:45 | Outpatient (CLI) | payer MEDICARE ==
[2025-01-13 12:05] LABS: Hematocrit 34.5 % (36.0-46.0); Hemoglobin 12.0 g/dL (12.2-16.2); Mean Corpuscular Hemoglobin 31.7 pg (28.0-32.0); Mean Corpuscular Volume 91.1 fL (80.0-100.0); Nucleated Red Blood Cells % 0.1 %
[2025-01-13 13:15] LABS: Urine Protein, UAD Negative (Negative)
[2025-01-13 13:20] LABS: Alanine Aminotransferase 16 U/L (7-40); Albumin 3.9 g/dL (3.2-4.8); Alkaline Phosphatase 74 U/L (46-116); Anion Gap 11 (5-15); BUN/Creatinine Ratio 3.5 (10.0-20.0); Calcium 8.8 mg/dL (8.7-10.4); Carbon Dioxide 30 mmol/L (20-31); Cholesterol 149 mg/dL (< 200); Glucose 90 mg/dL (74-106); Potassium 3.8 mmol/L (3.5-5.1); Sodium 137 mmol/L (136-145); Total Protein 5.9 g/dL (5.7-8.2); Triglycerides 99 mg/dL (< 150)
[2025-01-13 13:21] LABS: HDL Cholesterol 42 mg/dL (40-59)
[2025-01-13 13:23] LABS: Bilirubin, Total 0.2 mg/dL (0.2-1.0); Blood Urea Nitrogen 34 mg/dL (9-23); Chloride 96 mmol/L (98-107)
[2025-01-13 13:31] LABS: Uric Acid 5.7 mg/dL (3.1-7.8)
[2025-01-16 12:07] LABS: CA 27.29 36.4 U/mL (0.0-38.6)
[2025-01-16 15:07] LABS: Vitamin D-2 25-Hydroxy <1.0 ng/mL (.); Vitamin D-3 25-Hydroxy 61 ng/mL (.)
[2025-01-26] MEDS ORDERED: MOXI0.5D9 OP (14:24)
[2025-01-26] MEDS ORDERED: CHOL20004 PO (14:24)
== END 2025-01-13 17:00 | disposition home or self-care (01) ==
LOC: LAB 11:45
PROVIDERS: ATTEND Internal Medicine
DX: C50.911 Malignant neoplasm of unspecified site of right female breast (principal); I12.0 Hypertensive chronic kidney disease with stage 5 chronic kidney disease or end stage renal disease; N18.6 End stage renal disease
CPT/HCPCS: 36415; 80053; 80061; 81001; 82306; 84100; 84439; 84443; 84550; 85025; 85652; 86300

== ENCOUNTER 2025-01-23 16:02 | Outpatient (CLI) | payer MEDICARE | END 2025-01-23 17:00 | disposition home or self-care (01) | LOC: LAB 16:02 | PROVIDERS: ATTEND Internal Medicine | DX: C50.911 Malignant neoplasm of unspecified site of right female breast (principal); I13.2 Hypertensive heart and chronic kidney disease with heart failure and with stage 5 chronic kidney disease, or end stage renal disease; N18.6 End stage renal disease; I50.9 Heart failure, unspecified | CPT/HCPCS: 82270 ==

== ENCOUNTER → 2025-02-01 | Day surgery (SDC) | payer MEDICARE, MEDICAID ==
[2025-01-31 10:51] LABS: Hematocrit 34.6 % (36.0-46.0); Hemoglobin 12.1 g/dL (12.2-16.2); Mean Corpuscular Hemoglobin 32.0 pg (28.0-32.0); Mean Corpuscular Volume 91.6 fL (80.0-100.0); Nucleated Red Blood Cells % 0.1 %
[2025-01-31 10:55] LABS: Urine Protein, UAD Negative (Negative)
[2025-01-31 11:04] LABS: INR 0.96 (0.9-1.15); Partial Thromboplastin Time 26.2 SEC (24.5-34.5); Prothrombin Time 10.2 sec (9.3-11.8)
[2025-01-31 11:17] LABS: Alanine Aminotransferase 21 U/L (7-40); Albumin 4.3 g/dL (3.2-4.8); Alkaline Phosphatase 84 U/L (46-116); Anion Gap 15 (5-15); BUN/Creatinine Ratio 4.2 (10.0-20.0); Calcium 9.3 mg/dL (8.7-10.4); Carbon Dioxide 28 mmol/L (20-31); Sodium 139 mmol/L (136-145); Total Protein 7.0 g/dL (5.7-8.2)
[2025-01-31 11:18] LABS: Bilirubin, Total 0.3 mg/dL (0.2-1.0); Blood Urea Nitrogen 39 mg/dL (9-23); Chloride 96 mmol/L (98-107); Glucose 107 mg/dL (74-106); Potassium 3.5 mmol/L (3.5-5.1)
[~2025-02-01] VITALS: Ht 154.9 cm; Wt 52.6 kg
[~2025-02-01] MED LIST changes: +BUPIVACAINE HCL 0.25% P/F 10 ML VIAL ONE; +CHOL20004 PO; +HYDROmorphone HCL 2 MG/ML VL/or syr IV PRN; +KETAMINE 50mg/ML 1ml syringe ONE; +KETOROLAC TROMETH 30 MG/ML 1ML VIAL IV ONE; +LIDOCAINE 1% INJ PF 5ML AMP ONE; +LIDOCAINE W/ EPINEPHRINE 1% 20ML VIAL ONE; +METOCLOPRAMIDE HCL 5MG/ml INJ 2ml VIAL IV PRN; +MIDAZOLAM HCL 2MG/2ML 2ml VIAL (1mg/ml) ONE; +MORPHINE SULFATE 4 MG/ML SYR/VIAL IV PRN; +MORPHINE SULFATE INJ 2 MG/ml SYRG IV PRN; +MOXI0.5D9 OP; +ONDANSETRON HCL 4 MG/2 ML VIAL ONE; +PROPOFOL 10 MG/ML 20 ML IV ONE; +ROCURONIUM 10MG/ML 10ML VIAL IV ONE; +SODIUM CHLORIDE LOCK 10 ML ONE; +SUCCINYLCHOLINE CHLORIDE 20 MG/ML 10ML VIAL IV ONE; +fentaNYL CITRATE 100 MCG/2 ML VL ONE
[2025-02-01] MEDS: ceFAZolin 2 GM/D5W50ml 50 ML IV ONE (08:30)
[2025-02-01 08:56] VITALS: PULSE 78; RESP 13; O2SAT 97
[2025-02-01 09:06] VITALS: PULSE 75; RESP 14; O2SAT 99
--- NOTE | 2025-02-01 09:06 | DVHOP ---
DATE OF SURGERY: 02/01/2025 PREOPERATIVE DIAGNOSIS: Nonfunctioning dialysis catheter, right internal jugular. POSTOPERATIVE DIAGNOSIS: Nonfunctioning dialysis catheter, right internal jugular. SURGEON: Gt Tobias MD STAFF NUCLE[employer] WEAPONS OFFICER: Jaguar Morse NP. ANESTHESIA: Local with IV sedation. ANESTHESIOLOGIST: Dr. Hamilton. PROCEDURE: Explantation of dialysis catheter. DESCRIPTION OF PROCEDURE: Under adequate anesthesia with the patient's skin prepped and draped, the insertion site was dilated with a hemostat. There was pus that was emanating from the insertion site. This was cultured and then subsequently the catheter was removed in its entirety by traction and countertraction. Dressing was applied. The patient tolerated the procedure without untoward effects and the patient returned to the recovery room in stable condition. No family members in the waiting room. MD VADIM Roth/RAD TID: [id number] RECEIPT: [id number]
[2025-02-01] MEDS: HYDROmorphone HCL 2 MG/ML VL/or syr IV PRN (09:22)
[2025-02-01 09:55] VITALS: BP 132/89; PULSE 78; RESP 13; O2SAT 96
== END | disposition home or self-care (01) ==
LOC: SUR 06:19
PROVIDERS: ATTEND Surgery
DX: T82.41XA Breakdown (mechanical) of vascular dialysis catheter, initial encounter (principal); I12.0 Hypertensive chronic kidney disease with stage 5 chronic kidney disease or end stage renal disease; N18.6 End stage renal disease; F17.210 Nicotine dependence, cigarettes, uncomplicated; J45.909 Unspecified asthma, uncomplicated; Y71.2 Prosthetic and other implants, materials and accessory cardiovascular devices associated with adverse incidents; Z86.718 Personal history of other venous thrombosis and embolism
CPT/HCPCS: 36415; 36589; 80053; 81001; 81025; 85025; 85610; 85730; 86850; 86900; 86901; 87070; 87075; 87077; 87186; 87205; 88300; J0330; J0690; J1100; J1171; J2250; J2405; J2704; J3010; J3490